=== PATIENT | female | born 1995 | race Caucasian/White ===

== ENCOUNTER 2017-08-04 13:56 | Emergency (ER) | payer MEDICAID ==
[~2017-08-04] VITALS: Ht 172.7 cm; Wt 81.0 kg
[2017-08-04 14:28] LABS: BASOPHILS % (AUTO) 0.2 % (0-1); EOSINOPHILS # (AUTO) 0.1 X10'3 (0-0.9); EOSINOPHILS % (AUTO) 1.6 % (0-6); HEMOGLOBIN 10.9 g/dl (12.0-16.0); LYMPHOCYTES % (AUTO) 26.2 % (21-51); MEAN CORPUSCULAR HEMOGLOBIN 24.8 PG (27.0-31.0); MEAN CORPUSCULAR VOLUME 75.3 FL (78-98); MEAN PLATELET VOLUME 8.1 FL (7.4-10.4); MONOCYTES # (AUTO) 0.5 X10'3 (0-0.9); MONOCYTES % (AUTO) 6.5 % (2-12); NEUTROPHILS # (AUTO) 4.9 X10'3 (1.8-7.7); NEUTROPHILS % (AUTO) 65.5 % (42-75); PLATELET COUNT 325 X10'3 (140-440); RED BLOOD COUNT 4.38 X10'6 (4.20-5.60); RED CELL DISTRIBUTION WIDTH 16.5 % (11.5-14.5); WHITE BLOOD COUNT 7.4 X10'3 (4.5-11.0)
[2017-08-04 14:32] LABS: CLARITY,URINE CLOUDY (Clear); COLOR,URINE YELLOW (Yellow); GLUCOSE, URINE NEGATIVE (Neg); KETONES,URINE NEGATIVE (Neg); LEUKOCYTE ESTERASE ,URINE MODERATE (Neg); NITRITES, URINE NEGATIVE (Neg); OCCULT BLOOD,URINE TRACE-INTACT (Neg); PH,URINE 6.5 (4.8-8.0); PROTEIN,URINE NEGATIVE (Neg); UA COLLECTION TYPE CLN CATCH MIDSTREAM; UROBILINOGEN,URINE 0.2 E.U/dL (0.2-1.0)
[2017-08-04 14:33] LABS: URINE HCG NEGATIVE (NEG)
[2017-08-04 14:38] LABS: MUCUS STRANDS MODERATE /LPF (Neg); SQUAMOUS EPITHELIAL CELL,UR MANY /LPF (FEW)
[2017-08-04 14:38] LABS: INR 1.1 INR; PROTHROMBIN TIME 11.4 SECONDS (9.0-12.0)
[2017-08-04 14:39] LABS: BACTERIA,URINE 2+ /HPF (Neg); RBC,URINE 0-2 /HPF (0-2)
[2017-08-04 14:44] LABS: ALANINE AMINOTRANSFERASE 24 U/L (12-78); ALBUMIN 4.2 G/DL (3.4-5.0); ALBUMIN/GLOBULIN RATIO 1.1 (1.1-1.5); ALKALINE PHOSPHATASE 59 IU/L (46-116); ANION GAP 11 (8-16); ASPARTATE AMINO TRANSFERASE 18 U/L (10-37); BILIRUBIN,TOTAL 0.3 MG/DL (0.1-1.0); BLOOD UREA NITROGEN 10 MG/DL (7-18); BUN/CREATININE RATIO 12.3 (6.6-38.0); CALCIUM 9.2 MG/DL (8.5-10.1); CHLORIDE 105 MMOL/L (99-107); CREATININE 0.81 MG/DL (0.40-0.90); GLUCOSE 92 MG/DL (70-104); POTASSIUM 3.6 MMOL/L (3.5-5.1); SODIUM 143 MMOL/L (135-145); TOTAL CARBON DIOXIDE 26.8 MMOL/L (24-32); TOTAL PROTEIN 8.2 G/DL (6.4-8.2); eGFR 88 ML/MIN
[2017-08-04] MEDS ORDERED: BACDS PO (14:48)
[2017-08-04 14:57] VITALS: BP 140/66
== END 2017-08-04 14:58 | disposition home or self-care (01) ==
LOC: ER 13:56
DX: K43.9 Ventral hernia without obstruction or gangrene (principal); N39.0 Urinary tract infection, site not specified
CPT/HCPCS: 36415; 80053; 81001; 81025; 85025; 85610; 99284

== ENCOUNTER 2018-05-20 00:38 | Emergency (ER) | payer MEDICAID, OTHER ==
[~2018-05-20] VITALS: Ht 172.7 cm; Wt 88.0 kg
[2018-05-20] MEDS ORDERED: normal saline 1000ml 1,000 ML IV ONE (02:31)
[2018-05-20] MEDS ORDERED: ondansetron/PF 4mg/2ml inj IV ONE (02:35)
[2018-05-20] MEDS ORDERED: normal saline 1000ML IV soln IVB ONE (02:35)
[2018-05-20 03:15] LABS: BASOPHILS % (AUTO) 0.2 % (0-1); EOSINOPHILS # (AUTO) 0.2 X10'3 (0-0.9); EOSINOPHILS % (AUTO) 1.9 % (0-6); HEMATOCRIT 34.6 % (35.0-45.0); HEMOGLOBIN 11.1 g/dl (12.0-16.0); LYMPHOCYTES # (AUTO) 2.5 X10'3 (1.1-4.8); LYMPHOCYTES % (AUTO) 22.6 % (21-51); MEAN CORPUSCULAR HEMOGLOBIN 25.3 PG (27.0-31.0); MEAN CORPUSCULAR HGB CONC 32.2 % (33.0-36.5); MEAN CORPUSCULAR VOLUME 78.5 FL (78-98); MEAN PLATELET VOLUME 8.7 FL (7.4-10.4); MONOCYTES # (AUTO) 1.1 X10'3 (0-0.9); MONOCYTES % (AUTO) 9.6 % (2-12); NEUTROPHILS # (AUTO) 7.3 X10'3 (1.8-7.7); NEUTROPHILS % (AUTO) 65.7 % (42-75); PLATELET COUNT 315 X10'3 (140-440); RED BLOOD COUNT 4.41 X10'6 (4.20-5.60); RED CELL DISTRIBUTION WIDTH 17.8 % (11.5-14.5); WHITE BLOOD COUNT 11.1 X10'3 (4.5-11.0)
[2018-05-20 03:28] LABS: HEMOGLOBIN A1C 5.4 % (4.5-6.2)
[2018-05-20 03:31] LABS: ALANINE AMINOTRANSFERASE 19 U/L (12-78); ALBUMIN 3.6 G/DL (3.4-5.0); ALBUMIN/GLOBULIN RATIO 0.9 (1.1-1.5); ALKALINE PHOSPHATASE 59 IU/L (46-116); ANION GAP 8 (8-16); ASPARTATE AMINO TRANSFERASE 14 U/L (10-37); BILIRUBIN,TOTAL 0.1 MG/DL (0.1-1.0); BLOOD UREA NITROGEN 12 MG/DL (7-18); BUN/CREATININE RATIO 15.4 (6.6-38.0); CHLORIDE 104 MMOL/L (99-107); CREATININE 0.78 MG/DL (0.40-0.90); GLUCOSE 108 MG/DL (70-104); LIPASE 222 U/L (73-393); MAGNESIUM 1.8 MG/DL (1.5-2.4); SODIUM 140 MMOL/L (135-145); TOTAL CARBON DIOXIDE 28.5 MMOL/L (24-32); TOTAL PROTEIN 7.4 G/DL (6.4-8.2); eGFR > 90 ML/MIN
[2018-05-20] MEDS ORDERED: ONDA4TAB9 SL (04:11)
[2018-05-20 04:50] LABS: CLARITY,URINE CLEAR (Clear); COLOR,URINE YELLOW (Yellow); GLUCOSE, URINE NEGATIVE (Neg); KETONES,URINE NEGATIVE (Neg); LEUKOCYTE ESTERASE ,URINE SMALL (Neg); NITRITES, URINE NEGATIVE (Neg); OCCULT BLOOD,URINE NEGATIVE (Neg); PH,URINE 7.5 (4.8-8.0); PROTEIN,URINE NEGATIVE (Neg); UROBILINOGEN,URINE 0.2 E.U/dL (0.2-1.0)
[2018-05-20 04:55] VITALS: BP 119/66
[2018-05-20 05:10] LABS: UA COLLECTION TYPE CLN CATCH MIDSTREAM
[2018-05-20 05:13] LABS: SQUAMOUS EPITHELIAL CELL,UR MODERATE /LPF (FEW)
[2018-05-20 05:14] LABS: BACTERIA,URINE 1+ /HPF (Neg); RBC,URINE 0-2 /HPF (0-2)
== END 2018-05-20 05:16 | disposition home or self-care (01) ==
LOC: ER 00:39
DX: E11.65 Type 2 diabetes mellitus with hyperglycemia (principal); K29.70 Gastritis, unspecified, without bleeding; Z79.899 Other long term (current) drug therapy
CPT/HCPCS: 36415; 80053; 81001; 82948; 83036; 83690; 83735; 85025; 87088; 96361; 96374; 99283; J2405; J7030

== ENCOUNTER 2018-10-23 18:38 | Emergency (ER) | payer MEDICAID ==
[~2018-10-23] VITALS: Ht 172.7 cm; Wt 81.8 kg
--- NOTE | 2018-10-23 19:30 | NUR ---
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 FAMILY UPDATED.
[2018-10-23 19:43] LABS: BASOPHILS % (AUTO) 0.2 % (0-1); EOSINOPHILS % (AUTO) 0 % (0-6); HEMATOCRIT 37.3 % (35.0-45.0); HEMOGLOBIN 12.2 g/dl (12.0-16.0); LYMPHOCYTES # (AUTO) 0.8 X10'3 (1.1-4.8); LYMPHOCYTES % (AUTO) 8.6 % (21-51); MEAN CORPUSCULAR HEMOGLOBIN 24.8 PG (27.0-31.0); MEAN CORPUSCULAR HGB CONC 32.7 g/dL (33.0-36.5); MEAN CORPUSCULAR VOLUME 75.9 FL (78-98); MEAN PLATELET VOLUME 8.7 FL (7.4-10.4); MONOCYTES # (AUTO) 1.2 X10'3 (0-0.9); MONOCYTES % (AUTO) 13.5 % (2-12); NEUTROPHILS # (AUTO) 7.2 X10'3 (1.8-7.7); NEUTROPHILS % (AUTO) 77.7 % (42-75); PLATELET COUNT 256 X10'3 (140-440); RED BLOOD COUNT 4.92 X10'6 (4.20-5.60); RED CELL DISTRIBUTION WIDTH 17.7 % (11.5-14.5); WHITE BLOOD COUNT 9.3 X10'3 (4.5-11.0)
[2018-10-23 19:47] LABS: CLARITY,URINE SLIGHTLY CLOUDY (Clear); COLOR,URINE YELLOW (Yellow); GLUCOSE, URINE NEGATIVE (Neg); KETONES,URINE >=80 mg/dl (Neg); LEUKOCYTE ESTERASE ,URINE TRACE (Neg); NITRITES, URINE NEGATIVE (Neg); OCCULT BLOOD,URINE NEGATIVE (Neg); PH,URINE 5.5 (4.8-8.0); PROTEIN,URINE 30 mg/dl (Neg); UROBILINOGEN,URINE 0.2 E.U/dL (0.2-1.0)
[2018-10-23 19:48] LABS: UA COLLECTION TYPE CLN CATCH MIDSTREAM
[2018-10-23 19:56] LABS: BACTERIA,URINE 4+ /HPF (Neg); MUCUS STRANDS MANY /LPF (Neg); RBC,URINE NONE SEEN /HPF (0-2); SQUAMOUS EPITHELIAL CELL,UR MANY /LPF (FEW)
[2018-10-23 20:07] LABS: INR 1.2 INR; PARTIAL THROMBOPLASTIN TIME 31 SECONDS (22-32)
[2018-10-23 20:08] LABS: ALANINE AMINOTRANSFERASE 22 U/L (12-78); ALBUMIN 3.9 G/DL (3.4-5.0); ALBUMIN/GLOBULIN RATIO 0.8 (1.1-1.5); ALKALINE PHOSPHATASE 52 IU/L (46-116); ANION GAP 11 (8-16); ASPARTATE AMINO TRANSFERASE 21 U/L (10-37); BILIRUBIN,TOTAL 0.4 MG/DL (0.1-1.0); BLOOD UREA NITROGEN 10 MG/DL (7-18); BUN/CREATININE RATIO 12.3 (6.6-38.0); CHLORIDE 99 MMOL/L (99-107); CREATININE 0.81 MG/DL (0.40-0.90); GLUCOSE 98 MG/DL (70-104); POTASSIUM 3.6 MMOL/L (3.5-5.1); SODIUM 135 MMOL/L (135-145); TOTAL CARBON DIOXIDE 25.3 MMOL/L (24-32); TOTAL PROTEIN 8.5 G/DL (6.4-8.2); eGFR 88 ML/MIN
[2018-10-23] MEDS ORDERED: normal saline 1000ML IV soln IVB ONE (20:25)
[2018-10-23] MEDS ORDERED: AMOX-422 PO (20:28)
[2018-10-23 20:38] VITALS: BP 142/82
== END 2018-10-23 20:50 | disposition home or self-care (01) ==
LOC: ER 18:38
DX: J02.9 Acute pharyngitis, unspecified (principal); E11.9 Type 2 diabetes mellitus without complications; R42 Dizziness and giddiness; R51 Headache; R11.10 Vomiting, unspecified
CPT/HCPCS: 36415; 71045; 80053; 81001; 83605; 84145; 85025; 85610; 85730; 87040; 99284; J7030

== ENCOUNTER 2021-09-13 22:03 | Emergency (ER) | payer MEDICAID ==
[~2021-09-13] VITALS: Ht 172.7 cm; Wt 90.9 kg
--- NOTE | 2021-09-13 22:25 | NUR ---
POISON CONTROL CONTACTED- FACTORY HELPER SIVA. . CONTINUE TO MONITOR PT 12 HOURS FROM ARRIVAL. MONITOR FOR N/A, ATAXIA, RESPIRATORY DEPRESSION, RISK FOR SEROTONIN SYNDOME. CHECK ALCOHOL LEVEL, TYLENOL, ASPIRIN, MET. PANEL, AND CONTINUE AIRWAY MANAGEMENT. CONTINUE TO MONITOR VITAL SIGNS AND TELE
[2021-09-13] MEDS ORDERED: normal saline 1000ml 1,000 ML IV ONE (22:50)
[2021-09-13] MEDS ORDERED: normal saline 1000ML IV soln IVB ONE (22:50)
[2021-09-13 23:22] LABS: CLARITY,URINE CLEAR (Clear); COLOR,URINE YELLOW (Yellow); GLUCOSE, URINE NEGATIVE (Neg); KETONES,URINE NEGATIVE (Neg); LEUKOCYTE ESTERASE ,URINE TRACE (Neg); NITRITES, URINE NEGATIVE (Neg); OCCULT BLOOD,URINE NEGATIVE (Neg); PH,URINE 5.5 (4.8-8.0); PROTEIN,URINE NEGATIVE (Neg); UROBILINOGEN,URINE 0.2 E.U/dL (0.2-1.0)
[2021-09-13 23:28] LABS: UA COLLECTION TYPE CLN CATCH MIDSTREAM
[2021-09-13 23:33] LABS: BACTERIA,URINE NONE SEEN /HPF (Neg); MUCUS STRANDS NONE SEEN /LPF (Neg); RBC,URINE 0-2 /HPF (0-2); SQUAMOUS EPITHELIAL CELL,UR FEW /LPF (FEW); WBC,URINE 0-4 /HPF (0-4)
[2021-09-13 23:41] LABS: BASOPHILS % (AUTO) 0.5 % (0-1); EOSINOPHILS # (AUTO) 0.1 X10'3 (0-0.9); EOSINOPHILS % (AUTO) 1.4 % (0-6); HEMATOCRIT 34.4 % (35.0-45.0); HEMOGLOBIN 10.9 g/dl (12.0-16.0); LYMPHOCYTES # (AUTO) 2.3 X10'3 (1.1-4.8); LYMPHOCYTES % (AUTO) 26.5 % (21-51); MEAN CORPUSCULAR HEMOGLOBIN 24.1 PG (27.0-31.0); MEAN CORPUSCULAR HGB CONC 31.6 g/dL (33.0-36.5); MEAN CORPUSCULAR VOLUME 76.4 FL (78-98); MEAN PLATELET VOLUME 8.4 FL (7.4-10.4); MONOCYTES # (AUTO) 0.7 X10'3 (0-0.9); MONOCYTES % (AUTO) 8.5 % (2-12); NEUTROPHILS # (AUTO) 5.4 X10'3 (1.8-7.7); NEUTROPHILS % (AUTO) 63.1 % (42-75); PLATELET COUNT 325 X10'3 (140-440); WHITE BLOOD COUNT 8.6 X10'3 (4.5-11.0)
[2021-09-13 23:46] LABS: ALANINE AMINOTRANSFERASE 23 U/L (12-78); ALBUMIN 3.4 G/DL (3.4-5.0); ALBUMIN/GLOBULIN RATIO 0.9 (1.1-1.5); ALKALINE PHOSPHATASE 51 IU/L (46-116); ANION GAP 11 (8-16); ASPARTATE AMINO TRANSFERASE 20 U/L (10-37); BILIRUBIN,TOTAL 0.2 MG/DL (0.1-1.0); BLOOD UREA NITROGEN 4 MG/DL (7-18); BUN/CREATININE RATIO 5.8 (6.6-38.0); CALCIUM 8.4 MG/DL (8.5-10.1); CHLORIDE 110 MMOL/L (99-107); CREATININE 0.69 MG/DL (0.40-0.90); GLUCOSE 91 MG/DL (70-104); POTASSIUM 3.8 MMOL/L (3.5-5.1); SODIUM 146 MMOL/L (135-145); TOTAL CARBON DIOXIDE 25.2 MMOL/L (24-32); TOTAL PROTEIN 7.2 G/DL (6.4-8.2); eGFR > 90 ML/MIN
[2021-09-13 23:56] LABS: ETHANOL 0.115 GM/DL (0.0-0.010)
[2021-09-13 23:57] LABS: ACETAMINOPHEN < 2.0 UG/ML (10-30)
[2021-09-14 01:36] LABS: URINE HCG NEGATIVE (NEG)
[2021-09-14 01:44] LABS: URINE METHADONE SCREEN NEGATIVE (Neg)
[2021-09-14 01:54] LABS: URINE AMPHETAMINE SCREEN NEGATIVE (Neg); URINE BARBITUATE SCREEN NEGATIVE (Neg); URINE BENZODIAZEPINES SCREEN NEGATIVE (Neg); URINE CANNABINOID SCREEN POSITIVE (Neg); URINE COCAINE SCREEN NEGATIVE (Neg); URINE OPIATE SCREEN NEGATIVE (Neg); URINE PHENCYCLIDINE SCREEN NEGATIVE (Neg)
--- NOTE | 2021-09-14 03:15 | NUR ---
Pt arrived to unit, no distress noted, pt oriented to current room, pt states she is on no meds currently.
--- NOTE | 2021-09-14 05:16 | NUR ---
pt asleep at this time , no distress noted.
[2021-09-14 07:02] VITALS: BP 108/70
--- NOTE | 2021-09-14 09:00 | NUR ---
Patient is awake alert and oriented. No acute signs of distress noted. family is present at bed side.
--- NOTE | 2021-09-14 09:14 | NUR ---
Poison control called and recommended a repeat EKG.
--- NOTE | 2021-09-14 09:49 | NUR ---
Pt's mother in to visit.
== END 2021-09-14 11:14 | disposition home or self-care (01) ==
LOC: ER 22:04
DX: T50.902A Poisoning by unspecified drugs, medicaments and biological substances, intentional self-harm, initial encounter (principal); F10.129 Alcohol abuse with intoxication, unspecified; E11.9 Type 2 diabetes mellitus without complications; F31.9 Bipolar disorder, unspecified; Z72.89 Other problems related to lifestyle; Y92.89 Other specified places as the place of occurrence of the external cause; Y90.0 Blood alcohol level of less than 20 mg/100 ml
CPT/HCPCS: 36415; 80053; 80305; 80320; 80329; 81001; 81025; 82948; 84443; 85025; 87088; 93005; 96360; 96361; 99284; J7030

== ENCOUNTER 2021-09-29 16:07 | Emergency (ER) | payer MEDICAID ==
[~2021-09-29] VITALS: Ht 172.7 cm; Wt 90.9 kg
[2021-09-29] MEDS ORDERED: orphenadrine citrate 60mg/2ml inj. IM ONE (17:05)
[2021-09-29] MEDS ORDERED: ketorolac trometh. 30mg/ml inj. IM ONE (17:05)
--- NOTE | 2021-09-29 18:18 | NUR ---
Pt resting comfy supine in bed. No acute distress.
[2021-09-29] MEDS ORDERED: IBUP-1986 PO (19:02)
[2021-09-29 19:14] VITALS: BP 122/77
== END 2021-09-29 19:16 | disposition home or self-care (01) ==
LOC: ER 16:08
DX: S80.212A Abrasion, left knee, initial encounter (principal); S80.211A Abrasion, right knee, initial encounter; M25.562 Pain in left knee; M25.561 Pain in right knee; E11.9 Type 2 diabetes mellitus without complications; F41.9 Anxiety disorder, unspecified; F31.9 Bipolar disorder, unspecified; Z72.89 Other problems related to lifestyle; V89.2XXA Person injured in unspecified motor-vehicle accident, traffic, initial encounter; Y93.89 Activity, other specified; Y92.89 Other specified places as the place of occurrence of the external cause; Y99.8 Other external cause status
CPT/HCPCS: 73130; 73564; 96372; 99284; J1885; J2360

== ENCOUNTER 2022-07-06 18:24 | Emergency (ER) | payer MEDICAID ==
[~2022-07-06] VITALS: Ht 175.3 cm; Wt 86.0 kg
[~2022-07-06 18:24] MED LIST: IBUP-1986 PO
[2022-07-06 18:26] VITALS: BP 138/109
[2022-07-06] MEDS ORDERED: dexamethasone sod phosphate 10mg/ml inj PO STA (19:54)
[2022-07-06] MEDS ORDERED: AMOX-117 PO (19:54)
[2022-07-06] MEDS ORDERED: amox tr/potassium clavulanate 875/125mg TAB PO ONE (19:55)
== END 2022-07-06 20:22 | disposition home or self-care (01) ==
LOC: ER 18:25
DX: J02.9 Acute pharyngitis, unspecified (principal); E11.9 Type 2 diabetes mellitus without complications; F41.9 Anxiety disorder, unspecified; F31.9 Bipolar disorder, unspecified; F10.10 Alcohol abuse, uncomplicated; Z79.899 Other long term (current) drug therapy; Y90.9 Presence of alcohol in blood, level not specified
CPT/HCPCS: 87081; 87880; 99283; J1100

== ENCOUNTER 2022-10-22 15:50 | Emergency (ER) | payer MEDICAID ==
[~2022-10-22] VITALS: Ht 175.3 cm; Wt 91.0 kg
[2022-10-22 15:51] VITALS: BP 140/96
[2022-10-22] MEDS ORDERED: dexamethasone sod phosphate 10mg/ml inj PO STA (16:12)
[2022-10-22] MEDS ORDERED: azithromycin 250mg tablet PO ONE (16:15)
[2022-10-22] MEDS ORDERED: AZIT-83 PO (16:15)
== END 2022-10-22 16:59 | disposition home or self-care (01) ==
LOC: ER 15:51
DX: J02.0 Streptococcal pharyngitis (principal); F31.9 Bipolar disorder, unspecified; E11.9 Type 2 diabetes mellitus without complications; Z79.899 Other long term (current) drug therapy
CPT/HCPCS: 87880; 99283; J1100

== ENCOUNTER 2022-11-21 02:20 | Emergency (ER) | payer MEDICAID ==
[~2022-11-21] VITALS: Ht 172.7 cm; Wt 90.8 kg
[2022-11-21 02:24] VITALS: BP 123/92
[2022-11-21 02:58] LABS: URINE HCG NEGATIVE (NEG)
[2022-11-21] MEDS ORDERED: LIDOcaine 1% W/epiNEPHrine 1:100,000 20ml vial SQ ONE (04:05)
[2022-11-21] MEDS ORDERED: ketorolac trometh inj. 60 MG/2 ML VIAL IM ONE (04:05)
== END 2022-11-21 05:58 | disposition home or self-care (01) ==
LOC: ER 02:20
DX: S01.511A Laceration without foreign body of lip, initial encounter (principal); R55 Syncope and collapse; E11.9 Type 2 diabetes mellitus without complications; Z72.89 Other problems related to lifestyle; Z79.899 Other long term (current) drug therapy; Y04.2XXA Assault by strike against or bumped into by another person, initial encounter; Y93.89 Activity, other specified; Y92.89 Other specified places as the place of occurrence of the external cause; Y99.8 Other external cause status
CPT/HCPCS: 40650; 70450; 70486; 81025; 96372; 99285; J1885

== ENCOUNTER 2022-11-26 13:56 | Emergency (ER) | payer MEDICAID ==
[~2022-11-26] VITALS: Ht 172.7 cm; Wt 84.0 kg
== END 2022-11-26 15:23 | disposition home or self-care (01) ==
LOC: ER 13:56
DX: S01.511D Laceration without foreign body of lip, subsequent encounter (principal); E11.9 Type 2 diabetes mellitus without complications; F31.9 Bipolar disorder, unspecified; F41.9 Anxiety disorder, unspecified; F10.10 Alcohol abuse, uncomplicated; X58.XXXD Exposure to other specified factors, subsequent encounter; Y90.9 Presence of alcohol in blood, level not specified
CPT/HCPCS: 96361; 96374; 96375; 99281; 99284